=== PATIENT | female | born 2005 | race Caucasian/White ===

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

== ENCOUNTER 2025-10-13 16:16 | Outpatient (CLI) | payer MEDICAID, SELFPAY ==
[2025-10-13 16:44] LABS: Hematocrit 33.9 % (35.0-49.0); Hemoglobin 11.7 g/dL (12.0-15.0); Mean Corpuscular HGB Conc 34.5 g/dL (32-36); Mean Corpuscular Hemoglobin 29.8 pg (27.0-31.0); Mean Corpuscular Volume 86.3 fL (78.0-102.0); Platelet Count Result 255 K/mm3 (150-420); Red Blood Count 3.93 M/mm3 (4.20-5.40); White Blood Count 10.7 K/mm3 (4.8-10.8)
[2025-10-13 17:27] LABS: HIV 1 P24 AG Negative (Negative); HIV 1/2 AB Negative (Negative)
[2025-10-14 11:11] LABS: Syphilis IgG/IgM Antibody Non-Reactive (Nonreactive)
[2025-10-14 13:13] LABS: Hepatitis B Surface Antigen Negative; Hepatitis B Surface Antigen Negative (Negative)
[2025-10-15 07:09] LABS: Cytomegalovirus (CMV) Ab, IgG 9.70 U/mL (0.00-0.59)
== END 2025-10-13 16:17 | disposition home or self-care (01) ==
LOC: CHSLAB 16:18
PROVIDERS: PCP Student in an Organized Health Care Education/Training Program; Visit Provider Student in an Organized Health Care Education/Training Program
DX: N91.2 Amenorrhea, unspecified (principal)
CPT/HCPCS: 36415; 84702; 85027; 86593; 86644; 86762; 86850; 86900; 86901; 87086; 87340; 87806

== ENCOUNTER 2025-10-16 07:40 | Outpatient (CLI) | payer MEDICAID, SELFPAY ==
--- NOTE | ~2025-10-16 | US_ITS ---
EXAMINATION: US OB <= 14 weeks fetus, 10/16/2025 7:43 DIRECTOR FIELD SERVICES HISTORY: N91.2 - Amenorrhea, unspecified Comparison: None Technique: Kelly-scale and color Doppler images were obtained. Findings: The uterus is anteverted 12 x 10.7 x 8.3 cm. Single live intrauterine identified with a pole measuring 6.3 cm corresponding to 12 weeks and 5 days, heart rate 191 Placenta is forming anteriorly, there is a focus of abnormal echogenicity at the edge of the placenta measuring 1.5 x 1.2 x 1.3 cm without abnormal flow Right ovary 3.8 x 2.2 x 1.8 cm, no adnexal mass. Left ovary not identified No free fluid IMPRESSION: 1. Single live intrauterine . 2. Small hypoechoic focus detailed above possibly sequelae of a previous subchorionic hemorrhage however distinction from a small abruption is limited. This may also represent an atypical fibroid or possibly a failed second gestational sac. Follow-up recommended to assess. Reviewed, dictated and finalized at location P. [employer]OR FIELD SERVICES IMPRESSION: 1. Single live intrauterine . 2. Small hypoechoic focus detailed above possibly sequelae of a previous subcho rionic hemorrhage however distinction from a small abruption is limited. This m ay also represent an atypical fibroid or possibly a failed second gestational s ac. Follow-up recommended to assess.
== END 2025-10-16 07:41 | disposition home or self-care (01) ==
LOC: CHSIMG 07:40
PROVIDERS: PCP Student in an Organized Health Care Education/Training Program; Visit Provider Student in an Organized Health Care Education/Training Program
DX: N91.2 Amenorrhea, unspecified (principal)
CPT/HCPCS: 76801

== ENCOUNTER 2025-11-17 07:18 | Outpatient (CLI) | payer OTHER, SELFPAY ==
--- NOTE | ~2025-11-17 | US_ITS ---
EXAMINATION: US OB follow up DATE: 11/17/2025 07:46 INDICATION: Encounter for supervision of normal TECHNIQUE: Real-time ultrasound of the pelvis was performed. The interpreting radiologist was not present for the study. COMPARISON: None. FINDINGS: There is a single living fetus in vertex presentation. The placenta is anterior and not low-lying with caudal margin 6.5 cm from the internal cervical os. heart rate is 137 beats per minute (bpm). The amniotic fluid volume is subjectively normal. The following biometric data were obtained: BPD: 4.0 cm -> 18 weeks 0 days Head circumference: 14.1 cm -> 17 weeks 3 days Abdominal circumference: 12.0 cm -> 17 weeks 5 days Femur length: 2.3 cm -> 16 weeks 6 days These measurements are concordant. Head circumference to abdominal circumference ratio: 1.17 (normal range 1.08-1.28). Estimated weight: 191 g (+/-) 29 g or 7 oz. (+/-) 1 oz. IMPRESSION: 1. Single living fetus in vertex presentation with heart rate of 137 bpm. 2. Estimated weight is 48th percentile by Hadlock criteria when 04/25/2026 is used as the estimated date of delivery (LUCIE). Please correlate with clinical information or earlier ultrasounds for most accurate LUCIE. Reviewed, dictated and finalized at location A. ING MACHINE OPERATOR IMPRESSION: 1. Single living fetus in vertex presentation with heart rate of 137 bpm. 2. Estimated weight is 48th percentile by Hadlock criteria when 04/25/2026 is used as the estimated date of delivery (LUCIE). Please correlate with clinica l information or earlier ultrasounds for most accurate LUCIE.
--- OUTSIDE RECORDS SUMMARY | 2025-11-17 07:22 | XMS_ITS | Encounter Summary ---
Author Organization [facility] Healthcare Address [address] [place] [id number] Care Team Providers Care Machine Tool Dresser Name Role Phone Unknown, Notinfile Primary Care Provider Unavail able Viri Williamson RN Unavailable [phone] Viri Williamson RN Unavailable [phone] Viri Williamson RN Unavailable [phone] Nery Menjivar MD, Anderson Ortega Unavailable + Viri Williamson RN Unavailable [phone] Karen Rodriguez NP Primary Care Provider Encounter Details Date Type Department Care Team (Late st Contact Info) Description 12/14/2021 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 11/12/2022 11/14/2022 02/10/2023 3:05 AM C DT documented as of this encounter Care Teams Machine Tool Dresser Relationship Specialty Start Date End Date Unknown, Notinfile PCP - General 11/15/21 11/22/22 Karen Rodriguez NP [address] [place] [address] PCP - General Nurse Practitioner 11/23/22 Viri Williamson, RN [address] [place] [address] Nurse Navigator 10/27/22 10/27/22 Viri Williamson RN [address] [place] [address] Nurse Navigator 10/28/22 10/30/22 Viri Williamson RN [address] [place], [place] [id number] Nurse Navigator 10/31/22 11/08/22 Anderson Gabriel Jr., MD [address] [place] [address] Consulting Physician Neurosurgery 11/02/22 Viri Williamson, RN [address] [place] [address] Nurse Navigator 11/10/22 12/01/22 documented as of this encounter
--- OUTSIDE RECORDS SUMMARY | 2025-11-17 07:22 | XMS_ITS | Clinical Summary ---
Author Organization [facility] Address [address] [place] [address] Care Team Providers Care Program Review Director Name Role Phone Unavailable Primary Care Provider Unavailabl e Allergies No known active allergies Medications No known medications Social History Tobacco Use Types Packs/Day Years Used Date Smoking Tobacco: Every Day Cigarettes Smokeless Tobacco: Never Tobacco Cessation:Ready to Q uit: Not Asked; Counseling Given: Not Answered Comments No Sex and Gender Information Value Date Recorded Sex Assigned at Not on file Legal Sex Female 5:58 PM SAP BUSINESS ANALYST Gender Identity Not on file Sexual Orientation Not on file Last Filed Vital Signs Vital Sign Reading Time Taken Comments Blood Pressure 120/71 11/04/2023 3:06 PM SAP BUSINESS ANALYST Pulse 68 11/04/2023 3:06 PM SAP BUSINESS ANALYST Temperature 36.6 C (97.8 F) 11/04/2023 3:06 PM SAP BUSINESS ANALYST Respiratory Rate 18 11/04/2023 3:06 PM SAP BUSINESS ANALYST Oxygen Saturation 100% 11/04/2023 3:06 PM SAP BUSINESS ANALYST Inhaled Oxygen Concentration - - Weight 63.8 kg (140 lb 10.5 oz) 11/04/2023 3:06 PM SAP BUSINESS ANALYST Height 165.1 cm (5' 5) 11/04/2023 3:06 PM SAP BUSINESS ANALYST Body Mass Index 23.41 11/04/2023 3:06 PM SAP BUSINESS ANALYST Plan of Treatment Health Maintenance Due Date Last Done Comments Cervical Cancer Screening Pap Smear (Age 21 to 29) Every 3 Years 2004 Cervical Cancer Screening 2004 Annual Physical 2007 Hepatitis A Vaccines (2 of 2 - 2-dose series) 10/06/2016 04/05/2016 Meningococcal B Vaccine (1 of 2 - Standard) 2020 Hepatitis C 2022 COVID-19 Vaccine (2 - season) 2025 08/09/2022 Influenza Adult (#1) 2025 11/15/2021, 09/17/2013, 11/23/2010, Additional history exists DTaP, Tdap and Td Vaccines (7 - Td or Tdap) 04/05/2026 04/05/2016, 05/07/2010, 07/07/2006, Additional history exists Hepatitis B Vaccines Completed 08/26/2005, 2004, 2004 Pneumococcal Vaccine: Pediatrics (0 to 5 Years) and At-Risk Patients (6 to 49 Years) Completed 07/07/2006, 04/19/2005, 03/30/2005, Additional history exists HPV Vaccines Completed 02/09/2021, 05/27, 04/05/2016 Meningococcal Vaccine Completed 02/09/2021, 016 RSV Immunizations Under 20 Months Aged Out No longer eligible based on patient's age to complete this topic
--- OUTSIDE RECORDS SUMMARY | 2025-11-17 07:22 | XMS_ITS | Encounter Summary ---
Author Organization [facility] Address [address] [place] [address] Care Team Providers Care Tent Finisher Name Role Phone Unknown, Notinfile Primary Care Provider Unavail able Viri Williamson RN Unavailable [phone] Viri Williamson RN Unavailable [phone] Viri Williamson RN Unavailable [phone] Nery Menjivar MD, Anderson Ortega Unavailable + Viri Williamson RN Unavailable [phone] Karen Rodriguez NP Primary Care Provider Encounter Details Date Type Department Care Team (Late st Contact Info) Description 12/14/2021 Telephone [facility] Diagnostic Imaging Department [address] [place] [phone] Seema Ignacio, RT Social History Tobacco Use Types Packs/Day Years Used Date Smoking Tobacco: Never Smokeless Tobacco: Never Comments No Sex and Gender Information Value Date Recorded Sex Assigned at Not on file Legal Sex Female 4:34 AM DIETETIC TECH Gender Identity Not on file Sexual Orientation Not on file documented as of this encounter Plan of Treatment Not on file documented as of this encounter Visit Diagnoses Not on filedocumented in this encounter Additional Health Concerns Infection Onset Date Last Indicated Resolved Time COVID19 10/31/2022 10/31/2022 11/12/2022 3:05 AM DIETETIC TECH COVID: Recovered Comment:Added based on recent COVID infection. 11/12/2022 11/14/2022 02/10/2023 3:05 AM C DT documented as of this encounter Care Teams Tent Finisher Relationship Specialty Start Date End Date Unknown, Notinfile PCP - General 11/15/21 11/22/22 Karen Rodriguez NP [address] [place] [address] PCP - General Nurse Practitioner 11/23/22 Viri Williamson, RN [address] [place] [address] Nurse Navigator 10/27/22 10/27/22 Viri Williamson RN [address] [place] [address] Nurse Navigator 10/28/22 10/30/22 Viri Williamson RN [address] [place], [place] [id number] Nurse Navigator 10/31/22 11/08/22 Anderson Gabriel Jr., MD [address] [place] [address] Consulting Physician Neurosurgery 11/02/22 Viri Williamson, RN [address] [place] [address] Nurse Navigator 11/10/22 12/01/22 documented as of this encounter
--- OUTSIDE RECORDS SUMMARY | 2025-11-17 07:22 | XMS_ITS | Clinical Summary ---
Author Organization [facility] Address [address] [place] [address] Care Team Providers Care Spinning Frame Fixer Name Role Phone Nery Menjivar MD, Anderson Ortega Unavailable + Karen Rodriguez NP Primary Care Provider Allergies No known active allergies Medications etonogestreL (NEXPLANON) 68 mg implantIndications : Contraception by subdermal route Implanted in March 2022 Active acetaminophen (TYLENOL) 500 mg tablet Take 1 tablet (500 mg total) by mouth every 6 (six) hours as needed for pain 30 tablet 2 2 Active ibuprofen (ADVIL,MOTRIN) 400 mg tablet Take 1 tablet (400 mg total) by mouth every 6 (six) hours as needed for pain 30 tablet 2 2 Active mupirocin (BACTROBAN) 2 % ointment Dissolve one inch of ointment in 240 ml shyann med sinus rinse and irrigate each nostril with half of the bottle twice a day. 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 OR course uncomplicated. She was admitted to the PICU post op for close neurological monitoring and DI monitoring. Her neuro checks remained stable and were able to be liberalized to every four hours. Her sodiums and spec gravs have been stable. Transferred to floor on 11/01. Neuros remain stable post-operatively. 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 OR course uncomplicated. She was admitted to the PICU post op for close neurological monitoring and DI monitoring. Her neuro checks remained stable and were able to be liberalized to every four hours. Her sodiums and spec gravs have been stable. Stable to transfer to the floor today, 11/01. 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 She underwent transsphenoidal cyst drainage on 10/31/22. We consulted for risk of post-operative pituitary insufficiencies and DI. Risk of diabetes insipidus: Sodium today is normal. She does not have high volume urine output. No current evidence of DI. However, some patients do have a tri-phasic response and may develop transient SIADH several days after surgery. Please continue to monitor strict I/Os Please continue to monitor Na level q12h Adrenal: Her previous preop AM cortisol is reassurance about adrenal insufficiency. Please repeat AM cortisol 24 hr after the last dexamethasone dose. Cortisol level >10 would be very reassuring against central adrenal insufficiency Prolactin/GH: Please repeat prolactin, IGF1 and GH level with AM labs to establish post-op baseline Thyroid: Please check TSH and free T4 1-2 week post op (11/10) ? if normal then repeat after 4-6 weeks ? 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 Differential diagnosis includes seizures, functional neurologic disorder, metabolic derangement inducing seizure, intracranial process and ingestion. Unlikely seizure activity secondary to a metabolic derangement given normal labs at [facility], in addition unlikely secondary to ingestion given negative UDS at [facility]. Patient has denied fevers in recent days from her current illness and thus is unlikely secondary to fever, especially given age and no underlying seizure disorder that would be expected to lower her seizure threshold. Given normal head CT at OSH do not expect cause of abnormal activity to be secondary to intracranial mass or hemorrhage. Less likely secondary to a blood clot given overall reassuring labs at [facility] with a D-dimer of 1.03 which has a high negative predictive value. Two most likely differential diagnoses include seizure activity vs functional neurologic disorder. Given multiple episodes and family history of seizure disorder in her brother will plan for observation overnight and routine EEG tomorrow. If routine EEG benign will likely defer MRI at this time. - observation overnight - If further abnormal activity will attempt to capture on video - Unclear seizure activity at this time, and short episodes <60 seconds, will defer ordering abortive medications at this time - Plan for routine EEG in AM COV-19 11/14/2021 Assessment & Plan (11/14/2021 9:36 PM VESSEL BUILDER): Patient COVID-19 positive on 11/05/21. Improving symptoms. - Supportive care - Contact/droplet precautions Immunizations Immunization Administration Dates Next Due Influenza, Quadrivalent, Spl it, Preservative Free, Intramuscular 11/15/2021 Surgical History Surgery Date Site/Laterality Comments DENTAL SURGERY Family History Medical History Relation Name Comments Heart murmur Brother Seizures Brother Strabismus Brother Anesthesia problems Neg Hx Asthma Neg Hx Cancer Neg Hx Diabetes Neg Hx Heart disease Neg Hx Relation Name Status Comments Brother Mother Adopted Social History Tobacco Use Types Packs/Day Years Used Date Smoking Tobacco: Never Smokeless Tobacco: Never Tobacco Cessation:Counseling Given: Not Answered AUDIT-C Answer Date Recorded Q1: How often do you have a drink containing alcohol? Never 10/31/2022 Q2: How many drinks containi ng alcohol do you have on a typical day when you are drinking? Patient does not drink Q3: How often do you have si x or more drinks on one occasion? Never 10/31/2022 Comments No Sex and Gender Information Value Date Recorded Sex Assigned at Not on file Legal Sex Female 4:34 AM VESSEL BUILDER Gender Identity Not on file Sexual Orientation Not on file Last Filed Vital Signs Vital Sign Reading Time Taken Comments Blood Pressure 123/71 02/01/2023 3:08 PM VESSEL BUILDER Pulse 89 02/01/2023 3:08 PM VESSEL BUILDER Temperature 37.2 C (98.9 F) 02/01/2023 3:08 PM VESSEL BUILDER Respiratory Rate 22 02/01/2023 3:08 PM VESSEL BUILDER Oxygen Saturation 98% 02/01/2023 3:08 PM VESSEL BUILDER Inhaled Oxygen Concentration - - Weight 66.8 kg (147 lb 6 oz) 02/01/2023 3:08 PM VESSEL BUILDER Height 164.7 cm (5' 4.84) 02/01/2023 3:08 PM CS T Body Mass Index 24.64 02/01/2023 3:08 PM VESSEL BUILDER Plan of Treatment Health Maintenance Due Date Last Done Comments Cervical Cancer Screening 2004 Chlamydia and Gonorrhea (GC/ CT) Screening 2004 Depression Screening 2004 Hepatitis C Screening 2004 Meningococcal B Vaccine (1 o f 2 - Standard) 2020 Regular Well Visit/Exam 18-64 2022 Covid-19 Vaccine (2 - 2024-2 6 season) 2025 08/09/2022 Influenza Vaccine (#1) 2025 , 09/17/2013, 10/18/2011, Additional history exists DTaP/Tdap/Td Vaccine (7 - Td or Tdap) 04/05/2026 04/05/2016, 05/07/2010, 07/07/2006, Additional history exists Hepatitis B Screening Completed 08/26/2005 , 2004, 2004 Pneumococcal vaccine <65 Completed 006, 04/19/2005, 03/30/2005, Additional history exists Varicella Vaccines Completed 05/07/2010, 07/07/2006 HPV Vaccines Completed 02/09/2021, 05/27, 04/05/2016 Meningococcal Vaccine Completed 02/09/2021, 016 [id number] [place] [address] [facility] [place] [address] [facility] Advance Directives For more information, please contact: [phone] Documents on File Type Date Recorded Patient Hanger Expl anation Advance Directives and Livin g Will 03/09/2023 11:22 AM * Full Code (Latest Code Status on File) Date Activated Date Inactivated Comments 10/31/2022 11:45 AM 11/02/2022 9:23 PM * Full Code Date Activated Date Inactivated Comments 11/14/2021 10:18 PM 11/15/2021 7:23 PM Care Teams Spinning Frame Fixer Relationship Specialty Start Date End Date Karen Rodriguez NP [address] [place] [address] PCP - General Nurse Practitioner 11/23/22 Anderson Gabriel Jr., MD Consulting Physician Neurosurgery 11/02/22
== END 2025-11-17 07:19 | disposition home or self-care (01) ==
PROVIDERS: PCP Student in an Organized Health Care Education/Training Program; Visit Provider Student in an Organized Health Care Education/Training Program
DX: Z34.90 Encounter for supervision of normal pregnancy, unspecified, unspecified trimester (principal)
CPT/HCPCS: 76816